=== PATIENT | female | born 1950 | race Caucasian/White ===

== ENCOUNTER → 2016-05-24 | Outpatient (CLI) | payer MEDICARE ==
[~2016-05-24] MED LIST: HYDROCODONE BIT1 T11 PO; KEFLEX500 MG PO; LISINOPRIL5 MG PO; VITAMIN D50000 I1 PO
== END | disposition home or self-care (01) ==
LOC: MAMMO 05-19 13:00
DX: Z12.31 Encounter for screening mammogram for malignant neoplasm of breast (principal)

== ENCOUNTER → 2016-05-25 | Outpatient (CLI) | payer MEDICARE | END | disposition home or self-care (01) | LOC: LAB 03:04 | DX: Z12.31 Encounter for screening mammogram for malignant neoplasm of breast (principal) ==

== ENCOUNTER → 2016-05-28 | Outpatient (CLI) | payer MEDICARE ==
[2016-05-28 12:20] LABS: BASO # 0.1 10*3/uL (0.0-0.1); BASO % 1.2 % (0.0-1.0); EOS # 0.2 10*3/uL (0.0-0.4); EOS % 4.9 % (1.0-4.0); HEMATOCRIT 45.3 % (37.0-47.0); LYMPH # 1.8 10*3/uL (1.3-4.4); LYMPH % 41.1 % (27.0-41.0); MEAN CELL VOLUME 94.2 fl (81.0-99.0); MEAN CORPUSCULAR HGB 31.2 pg (27.0-31.0); MEAN CORPUSCULAR HGB CONC 33.1 g/dl (33.0-37.0); MEAN PLATELET VOLUME 9.7 fl (9.6-12.3); MONO # 0.6 10*3/uL (0.1-1.0); MONO % 13.4 % (3.0-9.0); NEUT # 1.7 10*3/uL (2.3-7.9); NEUT % 39.4 % (47.0-73.0); PLATELET COUNT AUTOMATED 227 10*3/uL (130-400); RED BLOOD COUNT 4.81 10*6/uL (4.10-5.10); WHITE BLOOD COUNT 4.3 10*3/uL (4.8-10.8)
[2016-05-28 12:28] LABS: BUN 11 mg/dl (7-24); CARBON DIOXIDE 30 mmol/L (21-32); CHLORIDE 105 mmol/L (98-107); GLUCOSE 97 mg/dL (65-99); POTASSIUM 4.1 mmol/L (3.5-5.1); SODIUM 142 mmol/L (136-145)
[2016-05-28 12:32] LABS: ALKALINE PHOSPHATASE 76 U/L (45-117); BILIRUBIN, TOTAL 0.5 mg/dl (0.2-1.0); CHOLESTEROL 220 mg/dL (<200); EST GLOM FILT AFRICAN AMERICAN > 60 ml/min; HDL CHOLESTEROL 79 mg/dl (40-60); LDL CHOLESTEROL 121 mg/dL (9-159); SGOT/AST 16 IU/L (3-35); SGPT/ALT 18 U/L (12-78); TOTAL PROTEIN 7.6 gm/dL (6.4-8.2); TRIGLYCERIDES 102 mg/dl (<150); VLDL CHOLESTEROL 20 mg/dL (6-40)
== END | disposition home or self-care (01) ==
LOC: LAB 02:43
PROVIDERS: Internal Medicine
DX: N63 Unspecified lump in breast (principal); I10 Essential (primary) hypertension; E55.9 Vitamin D deficiency, unspecified; R92.0 Mammographic microcalcification found on diagnostic imaging of breast

== ENCOUNTER 2019-01-18 14:59 | Emergency (ER) | payer MEDICARE ==
[~2019-01-18] VITALS: Ht 170.1 cm; Wt 63.5 kg
[2019-01-18 15:59] LABS: BASO % 0.9 % (0.0-1.0); EOS # 0.1 10*3/uL (0.0-0.4); EOS % 2.6 % (1.0-4.0); HEMATOCRIT 44.9 % (37.0-47.0); HEMOGLOBIN 14.4 g/dl (12.0-16.0); LYMPH # 1.1 10*3/uL (1.3-4.4); LYMPH % 24.2 % (27.0-41.0); MEAN CELL VOLUME 95.1 fl (81.0-99.0); MEAN CORPUSCULAR HGB 30.5 pg (27.0-31.0); MEAN CORPUSCULAR HGB CONC 32.1 g/dl (33.0-37.0); MEAN PLATELET VOLUME 9.5 fl (9.6-12.3); MONO # 0.6 10*3/uL (0.1-1.0); MONO % 12.3 % (3.0-9.0); NEUT # 2.8 10*3/uL (2.3-7.9); NEUT % 59.4 % (47.0-73.0); PLATELET COUNT AUTOMATED 250 10*3/uL (130-400); RED BLOOD COUNT 4.72 10*6/uL (4.10-5.10); RED CELL DISTRI WIDTH 11.8 % (0-14.5); WHITE BLOOD COUNT 4.6 10*3/uL (4.8-10.8)
[2019-01-18 16:15] LABS: ALBUMIN 3.8 gm/dl (3.1-4.5); ALKALINE PHOSPHATASE 72 U/L (45-117); BUN 13 mg/dl (7-24); CHLORIDE 107 mmol/L (98-107); CREATININE 0.76 mg/dL (0.55-1.02); POTASSIUM 3.7 mmol/L (3.5-5.1); SGOT/AST 15 IU/L (3-35); SGPT/ALT 25 U/L (12-78); SODIUM 140 mmol/L (136-145); TOTAL PROTEIN 7.6 gm/dL (6.4-8.2)
[2019-01-18 16:53] LABS: BILIRUBIN NEGATIVE (NEGATIVE); BLOOD NEGATIVE (NEGATIVE); CLARITY CLEAR (CLEAR); COLOR YELLOW (YELLOW); GLUCOSE NEGATIVE (NEGATIVE); KETONE NEGATIVE (NEGATIVE); LEUKO ESTERASE NEGATIVE (NEGATIVE); NITRITE NEGATIVE (NEGATIVE); SPECIFIC GRAVITY <= 1.005 (1.005-1.030); UROBILINOGEN 0.2 E.U./dl (0.2-1.0)
== END 2019-01-18 17:37 | disposition home or self-care (01) ==
LOC: ED 14:59
PROVIDERS: Nurse Practitioner Family
DX: R51 Headache (principal); H53.8 Other visual disturbances; I10 Essential (primary) hypertension; J45.909 Unspecified asthma, uncomplicated; Z88.2 Allergy status to sulfonamides; Z79.899 Other long term (current) drug therapy

== ENCOUNTER → 2020-05-01 | Outpatient (CLI) | payer MEDICARE | END | disposition home or self-care (01) | LOC: RAD 13:30 | PROVIDERS: ATTEND Nurse Practitioner Primary Care | DX: M81.0 Age-related osteoporosis without current pathological fracture (principal); R91.8 Other nonspecific abnormal finding of lung field ==

== ENCOUNTER → 2021-01-05 | Outpatient (CLI) | payer MEDICARE | END | disposition home or self-care (01) | LOC: CT 11-03 13:00 | PROVIDERS: ATTEND Physician Assistant | DX: Z12.31 Encounter for screening mammogram for malignant neoplasm of breast (principal); R91.1 Solitary pulmonary nodule ==

== ENCOUNTER → 2021-06-10 | Outpatient (CLI) | payer MEDICARE | END | disposition home or self-care (01) | LOC: CT 09:52 | PROVIDERS: ATTEND Nurse Practitioner Primary Care | DX: R91.8 Other nonspecific abnormal finding of lung field (principal) ==

== ENCOUNTER 2021-07-14 12:32 | Emergency (ER) | payer MEDICARE ==
[~2021-07-14] VITALS: Ht 167.6 cm; Wt 65.8 kg
== END 2021-07-14 19:58 | disposition home or self-care (01) ==
LOC: ED 12:32
DX: S80.01XA Contusion of right knee, initial encounter (principal); S20.212A Contusion of left front wall of thorax, initial encounter; Z88.2 Allergy status to sulfonamides; Z79.899 Other long term (current) drug therapy; Z90.89 Acquired absence of other organs; W18.39XA Other fall on same level, initial encounter; Y93.89 Activity, other specified; Y92.89 Other specified places as the place of occurrence of the external cause; Y99.8 Other external cause status

== ENCOUNTER → 2021-12-22 | Outpatient (CLI) | payer MEDICARE | END | disposition home or self-care (01) | LOC: CARD 12-17 15:00 | PROVIDERS: ATTEND Internal Medicine | DX: I34.0 Nonrheumatic mitral (valve) insufficiency (principal) ==

== ENCOUNTER → 2022-01-04 | Outpatient (CLI) | payer MEDICARE | END | disposition home or self-care (01) | LOC: CARD 12-30 10:00 | PROVIDERS: ATTEND Internal Medicine Cardiovascular Disease | DX: R07.89 Other chest pain (principal) ==

== ENCOUNTER → 2022-11-22 | Outpatient (CLI) | payer MEDICARE | END | disposition home or self-care (01) | LOC: CARD 11-12 08:00 | PROVIDERS: ATTEND Internal Medicine | DX: R00.2 Palpitations (principal) ==

== ENCOUNTER → 2023-05-05 | Outpatient (CLI) | payer MEDICARE ==
[2023-05-05 15:13] LABS: BUN 13 mg/dl (9-23); CHLORIDE 106 mmol/L (98-107); POTASSIUM 4.4 mmol/L (3.4-5.1)
== END | disposition home or self-care (01) ==
LOC: LAB 14:01
PROVIDERS: ATTEND Internal Medicine
DX: I10 Essential (primary) hypertension (principal)

== ENCOUNTER → 2023-05-10 | Outpatient (CLI) | payer MEDICARE | END | disposition home or self-care (01) | LOC: CT 00:42 | PROVIDERS: ATTEND Internal Medicine | DX: R91.8 Other nonspecific abnormal finding of lung field (principal); I25.10 Atherosclerotic heart disease of native coronary artery without angina pectoris ==

== ENCOUNTER → 2023-05-30 | Outpatient (CLI) | payer MEDICARE | END | disposition home or self-care (01) | LOC: RAD 05-23 09:00 → MAMMO 05-23 09:30 → RAD 02:58 | PROVIDERS: ATTEND Internal Medicine | DX: Z12.31 Encounter for screening mammogram for malignant neoplasm of breast (principal); M81.0 Age-related osteoporosis without current pathological fracture ==

== ENCOUNTER → 2024-03-27 | Outpatient (CLI) | payer MEDICARE ==
[~2024-03-27] MED LIST changes: +Technetium Tc 99M Tetrofosmi 0.23 MG KIT IJ SCH
== END | disposition home or self-care (01) ==
LOC: CARD 02:17
PROVIDERS: ATTEND Internal Medicine Cardiovascular Disease
DX: I25.10 Atherosclerotic heart disease of native coronary artery without angina pectoris (principal); R07.89 Other chest pain

== ENCOUNTER 2024-06-18 12:06 | Emergency (ER) | payer MEDICARE ==
[~2024-06-18] VITALS: Ht 167.6 cm; Wt 64.0 kg
[~2024-06-18 12:06] MED LIST changes: +****K-Phos500 MG PO; +MAGNESIUM OXID250 M2 PO; -Technetium Tc 99M Tetrofosmi 0.23 MG KIT IJ SCH; +[UNRECOGNIZED DRUG - OTHER] PO
[2024-06-18 13:24] LABS: MEAN CELL VOLUME 93.5 fl (81.0-99.0)
[2024-06-18 13:33] LABS: HEMATOCRIT 37.2 % (37.0-47.0); MEAN CORPUSCULAR HGB 30.7 pg (27.0-31.0); MEAN CORPUSCULAR HGB CONC 32.8 g/dl (33.0-37.0); MEAN PLATELET VOLUME 9.6 fl (9.6-12.3); PLATELET COUNT AUTOMATED 289 10*3/uL (130-400); RED BLOOD COUNT 3.98 10*6/uL (4.10-5.10); RED CELL DISTRI WIDTH 14.1 % (0-14.5)
[2024-06-18 13:36] LABS: MANUAL DIFF REFLEX YES
[2024-06-18 13:39] LABS: ALKALINE PHOSPHATASE 69 U/L (46-116); BUN 17 mg/dl (9-23); CHLORIDE 104 mmol/L (98-107); POTASSIUM 3.7 mmol/L (3.4-5.1); SGPT/ALT 114 U/L (5-49); TOTAL PROTEIN 7.3 gm/dL (6.0-8.0)
[2024-06-18 14:26] LABS: ATYPICAL LYMPHS 5 % (0-0); PLATELET SUFFICIENCY NORMAL (NORMAL); POLYCHROMASIA SLIGHT; TOTAL CELLS COUNTED 100 #CELLS
[2024-06-18] MEDS ORDERED: hydrALAZINE hydrochloride 20 MG/ML VIAL IV ONE (15:05)
[2024-06-18 15:06] LABS: BILIRUBIN Negative (Negative); BLOOD Negative (Negative); CLARITY Clear (Clear); COLOR Yellow (Yellow); GLUCOSE Negative (Negative); KETONE Negative (Negative); LEUKO ESTERASE Negative (Negative); NITRITE Negative (Negative); PH 7.5 (4.5-8.0); SPECIFIC GRAVITY 1.015 (1.001-1.030)
[2024-06-18 15:57] LABS: HYALINE CAST 0-2; RBC 0-2 rbc/hpf (0-2)
== END 2024-06-18 16:12 | disposition home or self-care (01) ==
LOC: ED 12:06
PROVIDERS: Physician Assistant Medical
DX: I16.0 Hypertensive urgency (principal); R42 Dizziness and giddiness; Z79.899 Other long term (current) drug therapy; Z90.89 Acquired absence of other organs

== ENCOUNTER 2024-11-24 12:48 | Emergency (ER) | payer MEDICARE ==
[~2024-11-24] VITALS: Ht 167.6 cm; Wt 65.8 kg
== END 2024-11-24 16:34 | disposition short-term general hospital (02) ==
LOC: ED 12:48
DX: S32.402A Unspecified fracture of left acetabulum, initial encounter for closed fracture (principal); S32.392A Other fracture of left ilium, initial encounter for closed fracture; S50.811A Abrasion of right forearm, initial encounter; Z88.2 Allergy status to sulfonamides; Z79.899 Other long term (current) drug therapy; Z90.89 Acquired absence of other organs

== ENCOUNTER → 2024-12-10 | Outpatient (CLI) | payer MEDICARE | END | disposition home or self-care (01) | LOC: RAD 14:27 | PROVIDERS: ATTEND Internal Medicine | DX: S32.492A Other specified fracture of left acetabulum, initial encounter for closed fracture (principal); S32.9XXA Fracture of unspecified parts of lumbosacral spine and pelvis, initial encounter for closed fracture; X58.XXXA Exposure to other specified factors, initial encounter; Y93.89 Activity, other specified; Y92.89 Other specified places as the place of occurrence of the external cause; Y99.8 Other external cause status ==

== ENCOUNTER → 2024-12-17 | Outpatient (CLI) | payer MEDICARE | END | disposition home or self-care (01) | LOC: RAD 13:55 | PROVIDERS: ATTEND Internal Medicine | DX: M48.02 Spinal stenosis, cervical region (principal); M47.812 Spondylosis without myelopathy or radiculopathy, cervical region; M46.02 Spinal enthesopathy, cervical region; M85.88 Other specified disorders of bone density and structure, other site ==

== ENCOUNTER → 2025-01-07 | Outpatient (CLI) | payer MEDICARE | END | disposition home or self-care (01) | LOC: ORTHO 02:41 | PROVIDERS: ATTEND Orthopaedic Surgery | DX: S32.9XXA Fracture of unspecified parts of lumbosacral spine and pelvis, initial encounter for closed fracture (principal); X58.XXXA Exposure to other specified factors, initial encounter; Y93.89 Activity, other specified; Y92.89 Other specified places as the place of occurrence of the external cause; Y99.8 Other external cause status ==